=== PATIENT | female | born 1960 | race Caucasian/White ===

== ENCOUNTER 2018-08-23 19:39 | Emergency (ER) | payer BC, OTHER ==
[~2018-08-23] VITALS: Ht 307.3 cm; Wt 80.7 kg
[~2018-08-23 19:39] MED LIST: AMIODARONE HCL200 MG PO; ECOTRIN81 MG; ENALAPRIL MALE2.5 MG; METOPROLOL TART25 MG; NITROSTAT0.4 MG SL; PLAVIX75 MG PO; PRAVASTATIN SOD20 MG; XARELTO20 MG PO; ZOLPIDEM TARTRAT5 MG PO; [UNRECOGNIZED DRUG - REMARK]
--- OUTSIDE RECORDS SUMMARY | 2018-08-23 19:42 | XMS REPORT | Continuity of Care Document ---
Author Author [facility] Interface Address Unknown Phone Unavailable Problems Problem Status Onset Date Classification Date Reported Comments Source Body mass index 30+ - obesity 08/05/2018 Diagnosis 08/05/2018 [facility] Sore throat symptom 08/05/2018 Diagnosis 08/05/2018 [facility] Acute upper respiratory infection 08/05/2018 Diagnosis 08/05/2018 [facility] Diabetes Mellitus 08/05/2018 Problem 08/05/2018 [facility] Hypercholesterolemia 08/05/2018 Problem 08/05/2018 [facility] Heart Disease 08/05/2018 Problem 08/05/2018 [facility] Acute left otitis media 08/20/2017 Diagnosis 08/20/2017 [facility] Acute pharyngitis 08/20/2017 Diagnosis 08/20/2017 [facility] Viral upper respiratory tract infection 05/03/2017 Diagnosis 05/03/2017 [facility] Pain in throat 05/03/2017 Diagnosis 05/03/2017 [facility] Feeling feverish 05/03/2017 Diagnosis 05/03/2017 [facility] Tachycardia 05/03/2017 Diagnosis 05/03/2017 [facility] Herpes labialis 01/16/2017 Diagnosis 01/16/2017 [facility] Medications Medication Details Route Status Patient Instructions Ordering Provider Order Date Source Accu-Chek Heydi Plus test strips Accu-Chek Heydi Plus test strips USE TO TEST ONCE DAILY AT DIFFERENT TIMES OF THE DAY Active [facility] Accu-Chek Softclix Lancets Accu-Chek Softclix Lancets Active [facility] Erythromycin 0.005 MG/MG Ophthalmic Ointment erythromycin 5 mg/gram (0.5 %) eye ointment Active [facility] Lidocaine Hydrochloride 20 MG/ML Mucous Membrane Topical Solution Lidocaine Viscous 2 % mucosal solution Take 2.5 mL every 3 hours by oral route. Active [facility] 24 HR metoprolol succinate 25 MG Extended Release Oral Tablet metoprolol succinate ER 25 mg tablet,extended release 24 hr TK 2 TS PO D Active [facility] Simvastatin 20 MG Oral Tablet simvastatin 20 mg tablet TK ONE T PO D Active [facility] Sulfamethoxazole 800 MG / Trimethoprim 160 MG Oral Tablet sulfamethoxazole 800 mg-trimethoprim 160 mg tablet Active [facility] Trazodone Hydrochloride 50 MG Oral Tablet trazodone 50 mg tablet Active [facility] valacyclovir 1000 MG Oral Tablet valacyclovir 1 gram tablet TK 1 T PO QD Active [facility] rivaroxaban 20 MG Oral Tablet [Xarelto] Xarelto 20 mg tablet TK 1 T PO D Active [facility] 24 HR dapagliflozin 5 MG / Metformin hydrochloride 500 MG Extended Release Oral Tablet [Xigduo] Xigduo XR 5 mg-500 mg tablet,extended release TK 1 T PO QAM WF Active [facility] benzonatate 200 MG Oral Capsule benzonatate 200 mg capsule Take 1 capsule 3 times a day by oral route as needed. Active [facility] Fluticasone propionate 0.05 MG/ACTUAT Metered Dose Nasal [place] fluticasone 50 mcg/actuation nasal spray,suspension [place] 2 sprays every day by intranasal route as needed for 10 days. Active [facility] Acetaminophen 325 MG / Hydrocodone Bitartrate 5 MG Oral Tablet hydrocodone 5 mg-acetaminophen 325 mg tablet TK 1 TO 2 TS PO Q 6 H PRN P Active [facility] Nystatin 248311 UNT/ML / Triamcinolone Acetonide 1 MG/ML Topical Cream nystatin-triamcinolone 100,000 unit/g-0.1 % topical cream Active [facility] tramadol hydrochloride 50 MG Oral Tablet tramadol 50 mg tablet Active [facility] Amoxicillin 875 MG Oral Tablet amoxicillin 875 mg tablet Take 1 tablet every 12 hours by oral route for 10 days. Active [facility] Aspirin 81 MG Delayed Release Oral Tablet aspirin 81 mg tablet,delayed release Take 1 tablet every day by oral route. Active [facility] 24 HR dapagliflozin 10 MG / Metformin hydrochloride 1000 MG Extended Release Oral Tablet [Xigduo] Xigduo XR 10 mg-1,000 mg tablet,extended release Active [facility] Lisinopril 5 MG Oral Tablet lisinopril 5 mg tablet Active [facility] Metoprolol Tartrate 25 MG Oral Tablet metoprolol tartrate 25 mg tablet Active [facility] Allergies, Adverse Reactions, Alerts Substance Category Reaction Severity Reaction type Status Date Reported Comments Source Immunizations Immunization Date Given Site Status Last Updated Comments Source Td (adult) 06/20/2011 completed [facility] Results Order Name Results Value Reference Range Date Interpretation Comments Source RESULT negative 08/05/2018 [facility] SWAB LOCATION Left and Right tonsillar pillars 08/05/2018 [facility] Influenza A positive 08/05/2018 [facility] Influenza B negative 08/05/2018 [facility] RESULT negative 08/20/2017 [facility] SWAB LOCATION Left and Right tonsillar pillars 08/20/2017 [facility] RESULT negative 05/03/2017 [facility] SWAB LOCATION Left and Right tonsillar pillars 05/03/2017 [facility] Influenza A negative 05/03/2017 [facility] Influenza B negative 05/03/2017 [facility] Vital Signs Vital Sign Value Date Comments Source Diastolic (mm Hg) 70 08/05/2018 [facility] Height 61 08/05/2018 [facility] Systolic (mm Hg) 118 08/05/2018 [facility] Weight 180 08/05/2018 [facility] Diastolic (mm Hg) 82 08/20/2017 [facility] Height 61 08/20/2017 [facility] Systolic (mm Hg) 120 08/20/2017 [facility] Weight 180 08/20/2017 [facility] Diastolic (mm Hg) 80 05/03/2017 [facility] Height 61 05/03/2017 [facility] Systolic (mm Hg) 128 05/03/2017 [facility] Weight 185 05/03/2017 [facility] Diastolic (mm Hg) 86 01/16/2017 [facility] Height 61 01/16/2017 [facility] Systolic (mm Hg) 130 01/16/2017 [facility] Weight 185 01/16/2017 [facility] Encounters Location Location Details Encounter Type Encounter Number Reason For Visit Attending Provider ADM Date DC Date Status Source [place] - [facility] - [id number] Gong-C: [address] [place] [address], Ph. [id number] Christie Leija 01/16/2017 [facility] [place] - [facility] - [id number] Gong-C: [address] [place] [address], Ph. [id number] Christie Leija 05/03/2017 [facility] [place] - [facility] - [id number] Leija, RADIO COMMUNICATIONS MECHANICIAN-C: [address] [place] [address], Ph. [id number] Christie Leija 05/03/2017 [facility] [place] - [facility] - [id number] [facility], RADIO COMMUNICATIONS MECHANICIAN: [address] [facility] [place] [address], Ph. [id number] Re[facility] 08/20/2017 [facility] [place] - [facility] - [id number] Cedric Otto, RADIO COMMUNICATIONS MECHANICIAN-C: [address] [place] [address], Ph. [id number] Cedric Otto 08/05/2018 [facility] Procedures Procedure Code Date Perfomer Comments Source
--- OUTSIDE RECORDS SUMMARY | 2018-08-23 19:42 | XMS REPORT | Encounter Summary ---
Author Organization Unknown Address [address] [place] [address] Phone [phone] Reason for Visit Medical Complaint Instructions 1. Acute upper respiratory infection rapid flu (A+B) upper respiratory infection (cold): care instructions benzonatate 200 mg capsule fluticasone 50 mcg/actuation nasal spray,suspension 2. Sore throat symptom rapid strep group A, throat sore throat: care instructions Lidocaine Viscous 2 % mucosal solution 3. Influenza vaccination influenza (flu) vaccine: care instructions 4. Body mass index 30+ - obesity body mass index: care instructions learning about healthy weight Discussion Note: None recorded. Plan of Care Patient Instructions An upper respiratory infection, or URI, is an infection of the nose, sinuses, or throat. URIs are spread by coughs, sneezes, and direct contact. The common cold is the most frequent kind of URI. The flu and sinus infections are other kinds of URIs. Almost all URIs are caused by viruses. Antibiotics won't cure them. But you can treat most infections with home care. This may include drinking lots of fluids and taking fchc-soq-ioindsy pain medicine. You will probably feel better in 4 to 10 days. The doctor has checked you carefully, but problems can develop later. If you notice any problems or new symptoms, get medical treatment right away. Follow-up care is a martini part of your treatment and safety. Be sure to make and go to all appointments, and call your doctor if you are having problems. It's also a good idea to know your test results and keep a list of the medicines you take. How can you care for yourself at home? To prevent dehydration, drink plenty of fluids, enough so that your urine is light yellow or clear like water. Choose water and other caffeine-free clear liquids until you feel better. If you have kidney, heart, or liver disease and have to limit fluids, talk with your doctor before you increase the amount of fluids you drink. Take an mcmq-ieo-rtpfwhe pain medicine, such as acetaminophen (Tylenol), ibuprofen (Advil, Motrin), or naproxen (Aleve). Read and follow all instructions on the label. Before you use cough and cold medicines, check the label. These medicines may not be safe for young children or for people with certain health problems. Be careful when taking irru-vhb-nawmtqq cold or flu medicines and Tylenol at the same time. Many of these medicines have acetaminophen, which is Tylenol. Read the labels to make sure that you are not taking more than the recommended dose. Too much acetaminophen (Tylenol) can be harmful. Get plenty of rest. Do not smoke or allow others to smoke around you. If you need help quitting, talk to your doctor about stop-smoking programs and medicines. These can increase your chances of quitting for good. When should you call for help? Call 911 anytime you think you may need emergency care. For example, call if: You have severe trouble breathing. Call your doctor now or seek immediate medical care if: You seem to be getting much sicker. You have new or worse trouble breathing. You have a new or higher fever. You have a new rash. Watch closely for changes in your health, and be sure to contact your doctor if: You have a new symptom, such as a sore throat, an earache, or sinus pain. You cough more deeply or more often, especially if you notice more mucus or a change in the color of your mucus. You do not get better as expected. Reminders Provider Appointments None recorded. Lab Rapid Flu (A+B) 08/05/2018 [facility] Rapid Strep Group a, Throat 08/05/2018 [facility] Referral None recorded. Procedures None recorded. Surgeries None recorded. Imaging None recorded. Medications Name Start Date Accu-Chek Heydi Plus test strips USE TO TEST ONCE DAILY AT DIFFERENT TIMES OF THE DAY Accu-Chek Softclix Lancets aspirin 81 mg tablet,delayed release Take 1 tablet every day by oral route. benzonatate 200 mg capsule Take 1 capsule 3 times a day by oral route as needed. fluticasone 50 mcg/actuation nasal spray,suspension [place] 2 sprays every day by intranasal route as needed for 10 days. Lidocaine Viscous 2 % mucosal solution Take 2.5 mL every 3 hours by oral route. lisinopril 5 mg tablet metoprolol succinate ER 25 mg tablet,extended release 24 hr TK 2 TS PO D metoprolol tartrate 25 mg tablet simvastatin 20 mg tablet TK ONE T PO D valacyclovir 1 gram tablet TK 1 T PO QD Xarelto 20 mg tablet TK 1 T PO D Xigduo XR 10 mg-1,000 mg tablet,extended release Medications Administered None recorded. Vitals Height Weight BMI Blood Pressure 5 ft 1 in 180 lbs 34 kg/m2 118/70 mm[Hg] Lab Results Date Name Specimen Result Interpretation Description Value Range Status Address Rapid Strep Group a, Throat Result negative [facility]: [address] [place] [address] Swab Location Left and Right tonsillar pillars [facility]: [address] [place] [address] Rapid Flu (A+B) Influenza a positive [facility]: [address] [place] [address] Influenza B negative [facility]: [address] [place] [address] Allergies Code Code System Name Reaction Severity Status Onset NKDA Problems Name Status Onset Date Source Diabetes Mellitus Active 08/05/2018 Hypercholesterolemia Active 08/05/2018 Heart Disease Active 08/05/2018 Procedures None recorded. Vaccine List Vaccine Type Td (adult) 06/20/2011 Social History Smoking Status Never Smoker Past Encounters 08/05/2018 Acute Upper Respiratory Infection; Sore Throat Symptom; Influenza Vaccination; Body Mass Index 30+ - Obesity WILLIAM Grant-C: [address] [place] [address], Ph. History of Present Illness [id number] Reported By: Patient HPI: Severity: subjective temperature. Context: no ill contacts, no tick/insect bites, no recent travel, no new medications. Associated Symptoms: no fever/chills, no muscle aches, no rash, no lethargy, headache, tired (fatigue), nasal passage blockage (stuffiness) Review of Systems:ROS as noted in the HPI Review of Systems Basic Reported By: Patient Physical Exam Adult Basic, Adult Female Complete Reported By: Patient Constitutional: General Appearance: obese. Level of Distress: NAD. Ambulation: ambulating normally Psychiatric: Mental Status: active and alert. Orientation: to time, to place, to person Huc-Gayx-Qaaer-Throat: Ears: no lesions on external ear, no outer ear tenderness, EACs clear, TMs clear. Hearing: no hearing loss. Nose: no lesions on external nose, nares patent, no septal deviation, nasal passages clear, no sinus tenderness, no nasal discharge. Lips, Teeth, and Gums: no mouth or lip ulcers, no bleeding gums, normal dentition. Oropharynx: moist mucous membranes, no erythema, no exudates, tonsils not enlarged Lungs: Respiratory effort: no dyspnea, no tachypnea, no use of accessory muscles, no intercostal retractions. Auscultation: breath sounds normal Cardiovascular: Heart Auscultation: RRR, no murmurs
--- OUTSIDE RECORDS SUMMARY | 2018-08-23 19:42 | XMS REPORT | Encounter Summary ---
Author Organization Unknown Address [address] [place] [address] Phone [phone] Reason for Visit Medical Complaint Instructions 1. Viral upper respiratory tract infection rapid flu (A+B) fluticasone 50 mcg/actuation nasal spray,suspension benzonatate 200 mg capsule 2. Pain in throat sore throat: care instructions rapid strep group A, throat 3. Feeling feverish 4. Tachycardia Discussion Note Pt is in NAD; Verbalizes understanding of all instructions with no questions at this time. Plan of Care Patient Instructions Take fluticasone as needed for congestion. [place] one spray in each nostril twice a day. Take a warm, steamy shower, blow your nose thereafter, and spray in each nostril. Tilt your head up for about 10 seconds and breath through your mouth. Do not sniff or snort the medication in or else the medication will go to your throat and not be absorbed appropriately. Continue to gargle and spit viscous lidocaine as needed for sore throat as directed. Alternate with Ibuprofen and acetaminophen every 4hrs as needed for pain/fever/headache. Proper hydration and rest. Return to work/school if free of fever for 24-hrs. Do not share any utensils/cups, no kissing, recommend hand washing after coughing/sneezing/blowing nose and cover face when you do so. Take medications as prescribed. Return to clinic or follow up with your PCP within 2-3 days if symptoms worsen as discussed. In case of an emergency call 911 or go to nearest ER. Reminders Provider Appointments None recorded. Lab Rapid Flu (A+B) 05/03/2017 [facility] Rapid Strep Group a, Throat 05/03/2017 [facility] Referral None recorded. Procedures None recorded. Surgeries None recorded. Imaging None recorded. Medications Name Start Date Accu-Chek Heydi Plus test strips USE TO TEST ONCE DAILY AT DIFFERENT TIMES OF THE DAY Accu-Chek Softclix Lancets benzonatate 200 mg capsule Take 1 capsule 3 times a day by oral route as needed. erythromycin 5 mg/gram (0.5 %) eye ointment fluticasone 50 mcg/actuation nasal spray,suspension [place] 2 sprays every day by intranasal route as needed for 10 days. hydrocodone 5 mg-acetaminophen 325 mg tablet TK 1 TO 2 TS PO Q 6 H PRN P Lidocaine Viscous 2 % mucosal solution USE 2.5 ML PO Q 3 H UTD. USE QTIP AND DAB ON LIP LESION PRN metoprolol succinate ER 25 mg tablet,extended release 24 hr TK 2 TS PO D nystatin-triamcinolone 100,000 unit/g-0.1 % topical cream simvastatin 20 mg tablet TK ONE T PO D sulfamethoxazole 800 mg-trimethoprim 160 mg tablet tramadol 50 mg tablet trazodone 50 mg tablet valacyclovir 1 gram tablet TK 1 T PO QD Xarelto 20 mg tablet TK 1 T PO D Xigduo XR 5 mg-500 mg tablet,extended release TK 1 T PO QAM WF Medications Administered None recorded. Vitals Height Weight BMI Blood Pressure 5 ft 1 in 185 lbs 35 kg/m2 128/80 mm[Hg] Lab Results Date Name Specimen Result Interpretation Description Value Range Status Address Rapid Strep Group a, Throat Result negative [facility]: [address] [place] [address] Swab Location Left and Right tonsillar pillars [facility]: [address] [place] [address] Rapid Flu (A+B) Influenza a negative [facility]: [address] [place] [address] Influenza B negative [facility]: [address] [place] [address] Allergies Code Code System Name Reaction Severity Status Onset NKDA Problems None recorded. Procedures None recorded. Vaccine List Vaccine Type Td (adult) 06/20/2011 Social History Smoking Status Never Smoker Past Encounters 05/03/2017 Viral Upper Respiratory Tract Infection; Pain in Throat; Feeling Feverish; Tachycardia Christie Leija, PROFESSIONAL DEVELOPMENT DIRECTOR-C: [address] [place] [address], Ph. History of Present Illness [id number] Reported By: Patient HPI: Quality: symptoms worse during the day. Duration: 3 days. Severity: subjective temperature. Context: no ill contacts, no tick/insect bites, no recent travel, no new medications. Associated Symptoms: no fever/chills, no headache, no muscle aches, no rash, no lethargy, cough; sore throat, chest congestion, body aches, feeling feverish, and chills Review of Systems:ROS as noted in the HPI Review of Systems Basic Reported By: Patient Physical Exam Adult Basic, Adult Female Complete Reported By: Patient Constitutional: General Appearance: healthy-appearing, well-nourished, well-developed. Level of Distress: NAD. Ambulation: ambulating normally Psychiatric: Mental Status: active and alert. Orientation: to time, to place, to person Wed-Ikhb-Vyznv-Throat: Ears: no lesions on external ear, no outer ear tenderness, EACs clear, TMs clear. Hearing: no hearing loss. Nose: no lesions on external nose, nares patent, no septal deviation, nasal passages clear, no sinus tenderness, nasal discharge--rhinorrhea, post nasal drip. Lips, Teeth, and Gums: no mouth or lip ulcers, no bleeding gums, normal dentition. Oropharynx: moist mucous membranes, no erythema, no exudates, tonsils not enlarged Neck: Lymph Nodes: no cervical LAD Lungs: Respiratory effort: no dyspnea, no tachypnea, no use of accessory muscles, no intercostal retractions. Auscultation: breath sounds normal Cardiovascular: Heart Auscultation: no murmurs, tachycardia Neurologic: Gait and Station: normal gait, normal station
--- OUTSIDE RECORDS SUMMARY | 2018-08-23 19:42 | XMS REPORT | Encounter Summary ---
Author Organization Unknown Address [address] [place] [address] Phone [phone] Reason for Visit Medical Complaint Instructions 1. [...] Instructions Take fluticasone as needed for congestion. [place] one spray in each nostril twice a day. Take a warm, steamy shower, blow your nose thereafter, and spray in each nostril. Tilt your head up for about 10 seconds and breath through your mouth. Do not sniff or snort the medication in or else the medication will go to your throat and not be absorbed appropriately. Gargle and spit viscous lidocaine as needed for [...] 2-3 days if symptoms worsen as discussed. Reminders Provider Appointments None recorded. Lab Rapid [...] eye ointment fluticasone 50 mcg/actuation nasal spray,suspension [place] 2 sprays every day by intranasal route [...] Group a, Throat Result negative [facility]: [address] [place] [address] Swab Location Left and Right tonsillar pillars [facility]: [address] [place] [address] Rapid Flu (A+B) Influenza a negative [facility]: [address] [place] [address] Influenza B negative [facility]: [address] [place] [address] Allergies Code Code System Name Reaction Severity Status Onset NKDA Problems None recorded. Procedures None recorded. Vaccine List Vaccine Type Td (adult) 06/20/2011 Social History Smoking Status Never Smoker Past Encounters 05/03/2017 Viral Upper Respiratory Tract Infection; Pain in Throat; Feeling Feverish; Tachycardia Christie Leija, MENS LOCKER ROOM ATTENDANT-C: [address] [place] [address], Ph. History of Present Illness [id number] Reported By: Patient HPI: Quality: symptoms worse during the day. Duration: 3 days. Severity: subjective temperature. Context: no ill contacts, no tick/insect bites, no recent travel, no new medications. Associated Symptoms: no fever/chills, no headache, no muscle aches, no rash, no lethargy, cough; sore throat, chest congestion, body aches, feeling feverish, and chills. Modifying Factors nothing gives relief Review of Systems:ROS as noted in the HPI Review of Systems Basic Reported By: Patient Physical Exam Adult Basic, Adult Female Complete Reported By: Patient Constitutional: General Appearance: healthy-appearing, well-nourished, well-developed. Level of Distress: NAD. Ambulation: ambulating normally Psychiatric: Mental Status: active and alert. Orientation: to time, to place, to person Dds-Amqw-Auhmt-Throat: Ears: no lesions on external ear, no [...]
--- OUTSIDE RECORDS SUMMARY | 2018-08-23 19:42 | XMS REPORT | Encounter Summary ---
Author Organization Unknown Address [address] [place] [id number] Phone [phone] Reason for Visit Medical Complaint Instructions 1. Acute left otitis media amoxicillin 875 mg tablet 2. Acute pharyngitis rapid strep group A, throat sore throat: care instructions Discussion Note: None recorded. Plan of Care Patient Instructions Ear Infection (Otitis Media) in : Care Instructions Your Care Instructions An ear infection may start with a cold and affect the middle ear (otitis media). It can hurt a lot. Most ear infections clear up on their own in a couple of days and do not need antibiotics. Also, antibiotics do not work against viruses, which may be the cause of your infection. Regular doses of pain relievers are the best way to reduce your fever and help you feel better. Follow-up care is a martini part of your treatment and safety. Be sure to make and go to all appointments, and call your doctor if you are having problems. It's also a good idea to know your test results and keep a list of the medicines you take. How can you care for yourself at home? Take pain medicines exactly as directed. If the doctor gave you a prescription medicine for pain, take it as prescribed. If you are not taking a prescription pain medicine, take an xqdo-kav-nvksrua medicine, such as acetaminophen (Tylenol), ibuprofen (Advil, Motrin), or naproxen (Aleve). Read and follow all instructions on the label. No one younger than 20 should take aspirin. It has been linked to Sintia syndrome, a serious illness. Do not take two or more pain medicines at the same time unless the doctor told you to. Many pain medicines have acetaminophen, which is Tylenol. Too much acetaminophen (Tylenol) can be harmful. Plan to take a full dose of pain reliever before bedtime. Getting enough sleep will help you get better. Try a warm, moist washcloth on the ear to see if it helps relieve pain. If your doctor prescribed antibiotics, take them as directed. Do not stop taking them just because you feel better. You need to take the full course of antibiotics. When should you call for help? Call your doctor now or seek immediate medical care if: You are in severe pain several hours after taking pain relievers. You have a fever with a stiff neck or a severe headache. You have redness or swelling behind the ear. You have signs of needing more fluids. You have sunken eyes and a dry mouth, and you pass only a little dark urine. Watch closely for changes in your health, and be sure to contact your doctor if: You do not improve in 2 days. White, yellow, or bloody liquid is coming from the ear. Where can you learn more? Go to www.[employer], log into the web portal, and enter G862 in the search box to learn more about Ear Infection (Otitis Media) in Teens: Care Instructions. Care instructions adapted under license by [facility]. This care instruction is for use with your licensed healthcare professional. If you have questions about a medical condition or this instruction, always ask your healthcare professional. [employer] disclaims any warranty or liability for your use of this information. Sore Throat: Care Instructions Your Care Instructions Infection by bacteria or a virus causes most sore throats. Cigarette smoke, dry air, air pollution, allergies, and yelling can also cause a sore throat. Sore throats can be painful and annoying. Fortunately, most sore throats go away on their own. If you have a bacterial infection, your doctor may prescribe antibiotics. Follow-up care is a martini part of your treatment and safety. Be sure to make and go to all appointments, and call your doctor if you are having problems. It's also a good idea to know your test results and keep a list of the medicines you take. How can you care for yourself at home? If your doctor prescribed antibiotics, take them as directed. Do not stop taking them just because you feel better. You need to take the full course of antibiotics. Gargle with warm salt water once an hour to help reduce swelling and relieve discomfort. Use 1 teaspoon of salt mixed in 1 cup of warm water. Take an wjyp-saw-btpjfvt pain medicine, such as acetaminophen (Tylenol), ibuprofen (Advil, Motrin), or naproxen (Aleve). Read and follow all instructions on the label. Be careful when taking bldc-ygx-spwullz cold or flu medicines and Tylenol at the same time. Many of these medicines have acetaminophen, which is Tylenol. Read the labels to make sure that you are not taking more than the recommended dose. Too much acetaminophen (Tylenol) can be harmful. Drink plenty of fluids. Fluids may help soothe an irritated throat. Hot fluids, such as tea or soup, may help decrease throat pain. Use unxs-ioo-oxirspr throat lozenges to soothe pain. Regular cough drops or hard candy may also help. These should not be given to young children because of the risk of choking. Do not smoke or allow others to smoke around you. If you need help quitting, talk to your doctor about stop-smoking programs and medicines. These can increase your chances of quitting for good. Use a vaporizer or humidifier to add moisture to your bedroom. Follow the directions for cleaning the machine. When should you call for help? Call your doctor now or seek immediate medical care if: You have new or worse trouble swallowing. Your sore throat gets much worse on one side. Watch closely for changes in your health, and be sure to contact your doctor if you do not get better as expected. Where can you learn more? Go to www.[employer], log into the web portal, and enter U420 in the search box to learn more about Sore Throat: Care Instructions. Care instructions adapted under license by [facility]. This care instruction is for use with your licensed healthcare professional. If you have questions about a medical condition or this instruction, always ask your healthcare professional. [employer] disclaims any warranty or liability for your use of this information. Influenza (Flu): Care Instructions Your Care Instructions Influenza (flu) is an infection in the lungs and breathing passages. It is caused by the influenza virus. There are different strains, or types, of the flu virus from year to year. Unlike the common cold, the flu comes on suddenly and the symptoms, such as a cough, congestion, fever, chills, fatigue, aches, and pains, are more severe. These symptoms may last up to 10 days. Although the flu can make you feel very sick, it usually doesn't cause serious health problems. Home treatment is usually all you need for flu symptoms. But your doctor may prescribe antiviral medicine to prevent other health problems, such as pneumonia, from developing. Older people and those who have a long-term health condition, such as lung disease, are most at risk for having pneumonia or other health problems. Follow-up care is a martini part of your treatment and safety. Be sure to make and go to all appointments, and call your doctor if you are having problems. Its also a good idea to know your test results and keep a list of the medicines you take. How can you care for yourself at home? Get plenty of rest. Drink plenty of fluids, enough so that your urine is light yellow or clear like water. If you have kidney, heart, or liver disease and have to limit fluids, talk with your doctor before you increase the amount of fluids you drink. Take an kghg-izs-pnaypzv pain medicine if needed, such as acetaminophen (Tylenol), ibuprofen (Advil, Motrin), or naproxen (Aleve), to relieve fever, headache, and muscle aches. Read and follow all instructions on the label. No one younger than 20 should take aspirin. It has been linked to Sintia syndrome, a serious illness. Do not smoke. Smoking can make the flu worse. If you need help quitting, talk to your doctor about stop-smoking programs and medicines. These can increase your chances of quitting for good. Breathe moist air from a hot shower or from a sink filled with hot water to help clear a stuffy nose. Before you use cough and cold medicines, check the label. These medicines may not be safe for young children or for people with certain health problems. If the skin around your nose and lips becomes sore, put some petroleum jelly on the area. To ease coughing: Drink fluids to soothe a scratchy throat. Suck on cough drops or plain hard candy. Take an oxwi-lpu-jriuvnp cough medicine that contains dextromethorphan to help you get some sleep. Read and follow all instructions on the label. Raise your head at night with an extra pillow. This may help you rest if coughing keeps you awake. Take any prescribed medicine exactly as directed. Call your doctor if you think you are having a problem with your medicine. To avoid spreading the flu Wash your hands regularly, and keep your hands away from your face. Stay home from school, work, and other public places until you are feeling better and your fever has been gone for at least 24 hours. The fever needs to have gone away on its own without the help of medicine. Ask people living with you to talk to their doctors about preventing the flu. They may get antiviral medicine to keep from getting the flu from you. To prevent the flu in the future, get a flu vaccine every fall. Encourage people living with you to get the vaccine. Cover your mouth when you cough or sneeze. When should you call for help? Call 911 anytime you think you may need emergency care. For example, call if: You have severe trouble breathing. Call your doctor now or seek immediate medical care if: You have new or worse trouble breathing. You seem to be getting much sicker. You feel very sleepy or confused. You have a new or higher fever. You get a new rash. Watch closely for changes in your health, and be sure to contact your doctor if: You begin to get better and then get worse. You are not getting better after 1 week. Where can you learn more? Go to www.[employer], log into the web portal, and enter L652 in the search box to learn more about Influenza (Flu): Care Instructions. Care instructions adapted under license by [facility]. This care instruction is for use with your licensed healthcare professional. If you have questions about a medical condition or this instruction, always ask your healthcare professional. [employer] disclaims any warranty or liability for your use of this information. Reminders Provider Appointments None recorded. Lab Rapid Strep Group a, Throat 08/20/2017 [facility] Referral None recorded. Procedures None recorded. Surgeries None recorded. Imaging None recorded. Medications Name Start Date Accu-Chek Heydi Plus test strips USE TO TEST ONCE DAILY AT DIFFERENT TIMES OF THE DAY Accu-Chek Softclix Lancets amoxicillin 875 mg tablet Take 1 tablet every 12 hours by oral route for 10 days. aspirin 81 mg tablet,delayed release Take 1 tablet every day by oral route. metoprolol succinate ER 25 mg tablet,extended release 24 hr TK 2 TS PO D simvastatin 20 mg tablet TK ONE T PO D valacyclovir 1 gram tablet TK 1 T PO QD Xarelto 20 mg tablet TK 1 T PO D Xigduo XR 10 mg-1,000 mg tablet,extended release Medications Administered None recorded. Vitals Height Weight BMI Blood Pressure 5 ft 1 in 180 lbs 34 kg/m2 120/82 mm[Hg] Lab Results Date Name Specimen Result Interpretation Description Value Range Status Address Rapid Strep Group a, Throat Result negative [facility]: [address] [place] [address] Swab Location Left and Right tonsillar pillars [facility]: [address] [place] [address] Allergies Code Code System Name Reaction Severity Status Onset NKDA Problems None recorded. Procedures None recorded. 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 History of Present Illness Throat-Oral Complaint Reported By: Patient HPI: Location: throat. Quality: sore throat, congested. Severity: moderate. Duration: 2 days. Onset/Timing: sudden. Context: no sick contacts, no foreign travel, non-smoker. Modifying factors: OTC medication. Associated Symptoms: no sputum production, no shortness of breath, no wheezing, no change in number of pillows needed to sleep at night, no sweats, no significant weight gain, no significant weight loss, no morning cough, no vomiting, no diarrhea, no rash, no nausea, sore throat Review of Systems Basic Reported By: Patient Constitutional: Constitutional: no fever Eyes: Eyes: no eye complaints Rrdn-Ncae-Qhlrt-Throat: Ears: ear pain. Nose: nose/sinus problems. Mouth/Throat: no bleeding gums, no mouth complaints, no teeth problems, sore throat Cardiovascular: Cardiovascular: no chest pain, no shortness of breath, no known heart murmur Respiratory: Respiratory: no wheezing, no shortness of breath Gastrointestinal: Gastrointestinal: no abdominal pain, no vomiting / diarrhea Genitourinary: Genitourinary: no urinary complaints, no discharge Musculoskeletal: Musculoskeletal: no muscle aches, no muscle weakness, no arthralgias/joint pain, no back pain Skin: Skin: no abnormal / changing mole, no jaundice, no rashes Neurologic: Neurologic: no loss of consciousness, no weakness, no numbness, no seizures, no dizziness, no headaches Physical Exam Adult Basic, Adult Female Complete Reported By: Patient Constitutional: General Appearance: obese. Level of Distress: mild distress. Ambulation: ambulating normally Psychiatric: Mental Status: active and alert. Orientation: to time, to place, to person Rtz-Glvy-Vsbzl-Throat: Ears: no lesions on external ear, no outer ear tenderness, EACs clear, TM erythematous. Hearing: no hearing loss. Nose: no lesions on external nose, nares patent, no septal deviation, nasal passages clear, no sinus tenderness, nasal discharge. Lips, Teeth, and Gums: no mouth or lip ulcers, no bleeding gums, normal dentition. Oropharynx: moist mucous membranes, no exudates, erythema, tonsils enlarged 1+ Neck: Neck: supple, trachea midline. Lymph Nodes: no cervical LAD, no supraclavicular LAD Lungs: Respiratory effort: no dyspnea, no tachypnea, no use of accessory muscles, no intercostal retractions. Auscultation: breath sounds normal Cardiovascular: Heart Auscultation: RRR, no murmurs Neurologic: Gait and Station: normal gait, normal station
--- OUTSIDE RECORDS SUMMARY | 2018-08-23 19:42 | XMS REPORT | Encounter Summary ---
Author Organization Unknown Address [address] [place] [address] Phone [phone] Reason for Visit Right Medical Complaint Instructions 1. Herpes labialis cold sores: care instructions valacyclovir 1 gram tablet Lidocaine Viscous 2 % mucosal solution Discussion Note Pt is in NAD; Verbalizes understanding of all instructions with no questions at this time. Plan of Care Patient Instructions Wash your hands often. And try not to touch your cold sores. This will help to avoid spreading the virus to your eyes or genital area, or to other people. This is more likely to happen if this is your first cold sore outbreak. Place ice or a cool, wet towel on the sores 3 times a day. Do this for 20 minutes each time. It may help to reduce redness and swelling. If you are just getting a cold sore, t ry dyoa-iza-fmuvxpw docosanol (Abreva) cream to reduce symptoms. Take an csnw-ovi-bxwrqhl pain medicine, such as acetaminophen (Tylenol), ibuprofen (Advil, Motrin), or naproxen (Aleve), as needed. Read and follow all instructions on the label. Avoid citrus fruit, tomatoes, and other foods that contain acid. Use viscous lidocaine numb sore areas in the mouth or on the lips as directed. Do not kiss or have oral sex with anyone while you have a cold sore. To prevent cold sores in the future :Avoid long exposure of your lips to the sun. (Wear a hat to help shade your mouth). Do not kiss or have oral sex with someone who has a cold sore. Do not have sex or oral sex with someone who has a genital herpes outbreak. Using lip balm that contains sunscreen may help reduce outbreaks of cold sores. Avoid foods that seem to cause your cold sores to come back. Do not share towels, razors, silverware, toothbrushes, or other objects with a person who has a cold sore. Take medications as prescribed. Return to clinic or follow up with your PCP within 2-3 days if symptoms worsen as discussed. Reminders Provider Appointments None recorded. Lab None recorded. Referral None recorded. Procedures None recorded. Surgeries None recorded. Imaging None recorded. Medications Name Start Date Accu-Chek Heydi Plus test strips USE TO TEST ONCE DAILY AT DIFFERENT TIMES OF THE DAY Accu-Chek Softclix Lancets erythromycin 5 mg/gram (0.5 %) eye ointment Lidocaine Viscous 2 % mucosal solution Take 2.5 mL every 3 hours by oral route. metoprolol succinate ER 25 mg tablet,extended release 24 hr TK 2 TS PO D simvastatin 20 mg tablet TK ONE T PO D sulfamethoxazole 800 mg-trimethoprim 160 mg tablet trazodone 50 mg tablet valacyclovir 1 gram tablet Take 1 tablet every day by oral route as directed for 5 days. Xarelto 20 mg tablet TK 1 T PO D Xigduo XR 5 mg-500 mg tablet,extended release TK 1 T PO QAM WF Medications Administered None recorded. Vitals Height Weight BMI Blood Pressure 5 ft 1 in 185 lbs 35 kg/m2 130/86 mm[Hg] Lab Results None recorded. Allergies Code Code System Name Reaction Severity Onset NKDA Problems None recorded. Procedures None recorded. Vaccine List Vaccine Type Td (adult) 06/20/2011 Social History Smoking Status Never Smoker Past Encounters 01/16/2017 Herpes Labialis Christie Leija, [facility]: [address] [place] [address], Ph. History of Present Illness Vood-Wbqdtrf-Tnmok-Skin Lesion-Bite 1 Reported By: Patient HPI: Location: face. Quality: itchy, painful, tender, red, single, localized, swollen. Severity: worsening, moderate. Duration: has noted for 1-2 weeks. Onset/Timing: gradual onset. Context: no new detergents or skin products, no one else with similar rash, no sting or bite, scratching. Aggravating factors: nothing makes it worse. Alleviating factors: nothing gives relief. Associated Symptoms: no fever/chills, no muscle aches, no headache, no cold symptoms, no nausea, no vomiting, no diarrhea, no urinary symptoms Review of Systems:ROS as noted in the HPI Review of Systems Basic Reported By: Patient Physical Exam Adult Basic, 14-21 Yr Male, Adult Female Complete, Adult Male Complete Reported By: Patient Constitutional: General Appearance: healthy-appearing, well-nourished, well-developed. Level of Distress: NAD. Ambulation: ambulating normally Psychiatric: Mental Status: active and alert, normal affect, normal mood. Orientation: to time, to place, to person Eyes: Lids and Conjunctivae: non-injected, no discharge Jth-Gkqk-Cdeea-Throat: Ears: no lesions on external ear, no outer ear tenderness, EACs clear, TMs clear, TM mobility normal. Nose: no lesions on external nose, nares patent, no septal deviation, nasal passages clear, no sinus tenderness, no nasal discharge. Lips, Teeth, and Gums: no bleeding gums, normal dentition, mouth ulcers. Oropharynx: moist mucous membranes, no erythema, no exudates, tonsils not enlarged Neck: Neck: supple. Lymph Nodes: no cervical LAD Lungs: Respiratory effort: no dyspnea, no tachypnea, no use of accessory muscles, no intercostal retractions. Auscultation: breath sounds normal, clear to auscultation, no wheezing, no rales/crackles, no rhonchi, no retractions, good air movement Cardiovascular: Heart Auscultation: RRR, no murmurs, no gallops, no rub. Rate and rhythm: regular Neurologic: Gait and Station: normal gait, normal station Skin: Inspection and palpation: no rash, no ulcer, no abnormal nevi, no induration, no nodules, good turgor, no jaundice, lesion
[2018-08-23] MEDS ORDERED: PHENYLEPHRINE HCL 1% NA SPR 15 ML BTL ONE (19:51)
[2018-08-23] MEDS ORDERED: OXYMETAZOLINE HCL 0.05% NAS 1 SPRAY BTL ONE (20:00)
[2018-08-24 00:14] VITALS: BP 119/64
== END 2018-08-23 22:10 | disposition home or self-care (01) ==
LOC: ER 19:39
DX: R04.0 Epistaxis (principal); E11.9 Type 2 diabetes mellitus without complications; I25.2 Old myocardial infarction